=== PATIENT | male | born 1940 | race Caucasian/White ===

== ENCOUNTER 2019-07-23 10:56 | Day surgery (SDC) | payer MEDICARE ==
[2019-07-22 13:19] VITALS: BMI 27.8
[~2019-07-23 10:56] MED LIST: ALBUTEROL NEB (CONC) 2.5 MG/0.5 ML INHALATION ONE; ATROPINE SULFATE 0.4 MG/ML 1 ML VIAL IM ONE; LACTATED RINGERS 1,000 ML IV SCH; LIDOCAINE 2% (PF) 20 MG/ML 5 ML VIAL INHALATION ONE; LIDOCAINE VISCOUS 300 MG/15 ML CUP MUCOUS MEM ONE; SODIUM CHLORIDE 0.9% 1,000 ML IV SCH
[2019-07-23 11:27] VITALS: TEMP 97.8
[2019-07-23] MEDS ORDERED: LIDOCAINE 1% 20 ML VIAL (10MG/ML) FOR IV START INTRADERMA ONE (11:47)
[2019-07-23] MEDS ORDERED: LIDOCAINE 1% INJ 10MG/ML (20 ML MDV) ONE (12:06)
[2019-07-23] MEDS ORDERED: PROPOFOL 10 MG/ML 20 ML VIAL IV ONE (12:06)
[2019-07-23 12:23] LABS: INR 3.3 (<1.2); Prothrombin Time 31.3 sec (9.0-12.0)
[2019-07-23] MEDS ORDERED: LIDOCAINE 2% INJ 20 MG/ML INTRATRACH ONE (12:25)
[2019-07-23 12:56] VITALS: BP 128/87; PULSE 105; RESP 28
--- NOTE | 2019-07-23 13:21 | PCN ---
PROCEDURE NOTE PROCEDURE: Tracheostomy tube change, airway examination, therapeutic lavage, BAL right middle lobe. PREOPERATIVE DIAGNOSIS: COPD, retained secretions, old tracheostomy tube. POSTOPERATIVE DIAGNOSIS: COPD, retained secretions and old tracheostomy tube. UNISHEAR OPERATOR provided unconscious sedation general anesthesia. There was informed consent and universal timeout the patient's procedure took place in room #2. There are two steps to the procedure. The first thing was changing the tracheostomy tube. A similar tube was used. We used a #6 Shiley cuffless tube. The old tube was removed. The new tube was replaced in to this the tracheostomy site. The trocar was removed and the inner cannula was inserted without difficulty. The patient tolerated the procedure very well. The tracheostomy tube was then secured. After this, lidocaine was inserted through the tracheostomy tube. This was used to anesthetize the airways. The bronchoscope was inserted through the tracheostomy tube. The trachea appeared relatively normal. The tracheostomy tube was sitting in the middle of the trachea in proper position. The tracheal ale was sharp. The right and left mainstem were topicalized. Right upper lobe and its 3 segments, right middle lobe and its 2 segments, the right lower lobe and its 5 segments, as well as the left upper lobe proper and its 2 segments, the lingula and its 2 segments and the left lower lobe and its 4 segments all had similar findings of very mild bronchitis. Actually, the airways looked relatively pristine. There was small amount of foamy thin secretions. There was no dominant mass or tumor. The airways themselves looked relatively normal without excessive erythema or hyperemia. There was no bleeding. The bronchoscope was then wedged into the right middle lobe. We did a BAL. The fluid will be sent for analysis. Additional secretions were suctioned and the bronchoscope was withdrawn. The patient tolerated the procedure well. There was no immediate complication. The patient will be recovered. MMODL / IJN: [id number] /
[2019-07-23 15:48] LABS: Appearance,BF Hazy; Color,BF Colorless; Nucleated Cells, Body Fluid 73 /uL; RBC, Body Fluid 348 /uL
[2019-07-23 15:57] LABS: Mononuclear WBC,Body Fluid 23 %; Polynuclear WBC,Body Fluid 73 %; Total Cells Counted,Body Fluid 100
== END 2019-07-23 13:58 | disposition home or self-care (01) ==
LOC: ORWHC2ENDO 10:56
PROVIDERS: ATTEND Internal Medicine Critical Care Medicine
DX: Z43.0 Encounter for attention to tracheostomy (principal); J44.9 Chronic obstructive pulmonary disease, unspecified; I10 Essential (primary) hypertension; E78.5 Hyperlipidemia, unspecified; E11.9 Type 2 diabetes mellitus without complications; J43.8 Other emphysema; I50.9 Heart failure, unspecified; I48.91 Unspecified atrial fibrillation; M19.90 Unspecified osteoarthritis, unspecified site; E66.9 Obesity, unspecified; Z68.33 Body mass index [BMI] 33.0-33.9, adult; H91.90 Unspecified hearing loss, unspecified ear; Z85.46 Personal history of malignant neoplasm of prostate; Z85.07 Personal history of malignant neoplasm of pancreas; Z79.01 Long term (current) use of anticoagulants; Z79.1 Long term (current) use of non-steroidal anti-inflammatories (NSAID); Z79.899 Other long term (current) drug therapy; Z88.7 Allergy status to serum and vaccine
CPT/HCPCS: 31624; 94640; 87798 ×3; 87496; 87498; 87529; 88108; 88305; 89050; 85610; 87252; 87502; 87634; 87070; 87205; 87116; 87102; 87206; J2001 ×3; J2704; 31502

== ENCOUNTER 2019-12-17 15:58 | Inpatient (IN) | payer MEDICARE ==
[2019-12-17] MEDS ORDERED: MORPHINE SULFATE 4 MG/ML SYRINGE IVP STA (16:29)
[2019-12-17] MEDS ORDERED: IPRATROPIUM-ALBUTEROL 3 ML NEB INHALATION STA (16:29)
[2019-12-17] MEDS ORDERED: SODIUM CHLORIDE 0.9% 1,000 ML IV STA (16:29)
[2019-12-17 16:37] LABS: Anisocytosis Slight; Basophils % (A) 0 %; Eosinophils # (A) 0.1 k/uL (0-0.7); Eosinophils % (A) 1 %; HCT 32.5 % (39.0-53.0); HGB 10.1 gm/dL (13.0-17.5); Hypochromasia Slight; Lymphocytes # (A) 0.6 k/uL (1.0-4.8); Lymphocytes % (A) 5 %; MCV 90.1 fL (80.0-100.0); Mean Platelet Volume 7.7; Monocytes # (A) 0.8 k/uL (0-1.0); Monocytes % (A) 8 %; Neutrophils # (A) 9.3 k/uL (1.3-7.7); Neutrophils % (A) 85 %; Platelet Count 210 k/uL (150-450); RBC 3.61 m/uL (4.30-5.90); RDW 16.4 % (11.5-15.5); WBC 10.9 k/uL (3.8-10.6)
[2019-12-17 16:45] LABS: Albumin 3.5 g/dL (3.5-5.0); Calcium 8.6 mg/dL (8.4-10.2); Potassium 4.6 mmol/L (3.5-5.1); Total Bilirubin 1.6 mg/dL (0.2-1.3)
[2019-12-17 16:53] LABS: Partial Thromboplastin Time 36.3 sec (22.0-30.0); Prothrombin Time 70.8 sec (9.0-12.0)
--- NOTE | 2019-12-17 16:54 | ED ---
Weakness HPI - General Chief complaint: Fall Stated complaint: Fall Time Seen by Provider: 12/17/19 16:22 Source: EMS, RN notes reviewed, old records reviewed Mode of arrival: EMS Limitations: no limitations, altered mental status - History of Present Illness Initial comments: This is a 79-year-old male DF for evaluation poor historian history obtained from EMS and staff here. Patient has had multiple recent falls also today with low oxygen level. Patient is improving with oxygen supplemental here in the ER just complains of severe pain he is a poor historian and his ability to both communicate secondary tracheostomy as well as has terrible hearing MD Complaint: generalized weakness Location: generalized Severity: severe Severity scale (1-10): 8 Quality: aching Consistency: constant Improves with: none, evening Context: recent illness, history of similar Associated Symptoms: easy bruising, loss of appetite, nausea/vomiting, shortness of breath - Related Data Home Medications Medication Instructions Recorded Confirmed Meloxicam [Mobic] 7.5 mg PO BID 07/22/19 12/17/19 Warfarin [Coumadin] 5 mg PO DAILY 07/22/19 12/17/19 Carbidopa-Levodopa 25-100 mg 1 tab PO BID 12/17/19 12/17/19 [Sinemet 25-100] DULoxetine HCL [Cymbalta] 60 mg PO DAILY 12/17/19 12/17/19 Ipratropium-Albuterol Nebulize 3 ml INHALATION RT-QID 12/17/19 12/17/19 [Duoneb 0.5 mg-3 mg/3 ml Soln] Metoprolol Tartrate [Lopressor] 50 mg PO BID 12/17/19 12/17/19 Simvastatin [Zocor] 40 mg PO HS 12/17/19 12/17/19 metFORMIN HCL [Glucophage] 500 mg PO DAILY 12/17/19 12/17/19 Allergies Allergy/AdvReac Type Severity Reaction Status Date / Time tetanus immune globulin Allergy Unknown Verified 07/23/19 11:35 Review of Systems ROS Statement: Those systems with pertinent positive or pertinent negative responses have been documented in the HPI. ROS Other: All systems not noted in ROS Statement are negative. 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 SHORTNESS OF BREATH USES UPDRAFT DAILY- UNKNOWN CAUSE , PANCREATIC CANCER -HAD TREATMENT" , BACK PAIN , CATARACTS History of Any Multi-Drug Resistant Organisms: None Reported Past Surgical History: No Surgical Hx Reported Additional Past Surgical History / Comment(s): TRACHEA, " SOME KIND OF HEART SURGERY " UNKNOWN Past Anesthesia/Blood Transfusion Reactions: No Reported Reaction Past Psychological History: No Psychological Hx Reported, Depression Smoking Status: Never smoker - Past Family History Mother Family Medical History: No Reported History General Exam Limitations: no limitations General appearance: alert, in no apparent distress Head exam: Present: atraumatic, normocephalic, normal inspection Eye exam: Present: normal appearance, PERRL, EOMI. Absent: scleral icterus, conjunctival injection, periorbital swelling ENT exam: Present: normal exam, mucous membranes moist Neck exam: Present: normal inspection. Absent: tenderness, meningismus, lymphadenopathy Respiratory exam: Present: respiratory distress, wheezes, accessory muscle use, decreased breath sounds, prolonged expiratory. Absent: rales, rhonchi, stridor Cardiovascular Exam: Present: tachycardia, irregular rhythm, normal heart sounds. Absent: systolic murmur, diastolic murmur, rubs, gallop, clicks GI/Abdominal exam: Present: soft, normal bowel sounds. Absent: distended, tenderness, guarding, rebound, rigid Extremities exam: Present: normal inspection, full ROM, normal capillary refill. Absent: tenderness, pedal edema, joint swelling, calf tenderness Back exam: Present: normal inspection Neurological exam: Present: alert, oriented X3, CN II-XII intact Psychiatric exam: Present: normal affect, normal mood Skin exam: Present: warm, dry, intact, normal color. Absent: rash Course Vital Signs 12/17/19 12/17/19 12/17/19 16:03 17:27 17:55 Temperature 98.0 F Pulse Rate 101 H 108 H 108 H Respiratory 16 Rate Blood Pressure 126/88 O2 Sat by Pulse 91 L Oximetry 12/17/19 12/17/19 18:19 19:45 Temperature Pulse Rate 112 H 97 Respiratory 16 20 Rate Blood Pressure 134/92 106/82 O2 Sat by Pulse 93 L 98 Oximetry - Reevaluation(s) Reevaluation #1: 12/17/19 19:59 Medical records reviewed Reevaluation #2: 12/17/19 20:00 Patient on reassessment shows no significant improvement of his oxygenation has improved with supplemental oxygen breathing treatments Reevaluation #3: 12/17/19 20:00 Due to patient's coagulopathy will hold Coumadin Reevaluation #4: 12/17/19 20:00 Patient's heart rate is improved, A. fib - Consultations Consultation #1: Spoke with found doctor's on-call who are agreeable for admission EKG Findings - EKG Comments: EKG Findings:: EKG shows A. fib with RVR of 108 QRS 108 QTC 402 Medical Decision Making - Medical Decision Making 79 male DF for evaluation of weakness multiple falls A. fib with RVR Juan patient is coagulopathic, will hold Spoke with CT brain C-spine negative for genetic injury patient is on trach will continue breathing treatments bilateral pneumonia admission for monitoring of clinical a status is patient's also an A. fib with RVR - Lab Data Result diagrams: 12/17/19 16:09 12/17/19 16:09 Lab Results 12/17/19 12/17/19 12/17/19 Range/Units 16:09 16:09 16:09 WBC 10.9 H (3.8-10.6) k/uL RBC 3.61 L (4.30-5.90) m/uL Hgb 10.1 L (13.0-17.5) gm/dL Hct 32.5 L (39.0-53.0) % MCV 90.1 (80.0-100.0) fL MCH 28.0 (25.0-35.0) pg MCHC 31.0 (31.0-37.0) g/dL RDW 16.4 H (11.5-15.5) % Plt Count 210 (150-450) k/uL Neutrophils % 85 % Lymphocytes % 5 % Monocytes % 8 % Eosinophils % 1 % Basophils % 0 % Neutrophils # 9.3 H (1.3-7.7) k/uL Lymphocytes # 0.6 L (1.0-4.8) k/uL Monocytes # 0.8 (0-1.0) k/uL Eosinophils # 0.1 (0-0.7) k/uL Basophils # 0.0 (0-0.2) k/uL Hypochromasia Slight Anisocytosis Slight PT 70.8 H (9.0-12.0) sec INR 6.9 H* (<1.2) APTT 36.3 H (22.0-30.0) sec Sodium 136 L (137-145) mmol/L Potassium 4.6 (3.5-5.1) mmol/L Chloride 102 (98-107) mmol/L Carbon Dioxide 22 (22-30) mmol/L Anion Gap 12 mmol/L BUN 36 H (9-20) mg/dL Creatinine 1.17 (0.66-1.25) mg/dL Est GFR (CKD-EPI)AfAm 68 (>60 ml/min/1.73 sqM) Est GFR (CKD-EPI)NonAf 59 (>60 ml/min/1.73 sqM) Glucose 146 H (74-99) mg/dL Lactic Ac Sepsis Rflx Plasma Lactic Acid Eddi (0.7-2.0) mmol/L Calcium 8.6 (8.4-10.2) mg/dL Phosphorus (2.5-4.5) mg/dL Magnesium (1.6-2.3) mg/dL Total Bilirubin 1.6 H (0.2-1.3) mg/dL AST 47 (17-59) U/L ALT 23 (4-49) U/L Alkaline Phosphatase 65 (38-126) U/L Creatine Kinase (55-170) U/L Troponin I (0.000-0.034) ng/mL NT-Pro-B Natriuret Pep pg/mL Total Protein 7.0 (6.3-8.2) g/dL Albumin 3.5 (3.5-5.0) g/dL 12/17/19 12/17/19 12/17/19 Range/Units 16:09 16:09 16:09 WBC (3.8-10.6) k/uL RBC (4.30-5.90) m/uL Hgb (13.0-17.5) gm/dL Hct (39.0-53.0) % MCV (80.0-100.0) fL MCH (25.0-35.0) pg MCHC (31.0-37.0) g/dL RDW (11.5-15.5) % Plt Count (150-450) k/uL Neutrophils % % Lymphocytes % % Monocytes % % Eosinophils % % Basophils % % Neutrophils # (1.3-7.7) k/uL Lymphocytes # (1.0-4.8) k/uL Monocytes # (0-1.0) k/uL Eosinophils # (0-0.7) k/uL Basophils # (0-0.2) k/uL Hypochromasia Anisocytosis PT (9.0-12.0) sec INR (<1.2) APTT (22.0-30.0) sec Sodium (137-145) mmol/L Potassium (3.5-5.1) mmol/L Chloride (98-107) mmol/L Carbon Dioxide (22-30) mmol/L Anion Gap mmol/L BUN (9-20) mg/dL Creatinine (0.66-1.25) mg/dL Est GFR (CKD-EPI)AfAm (>60 ml/min/1.73 sqM) Est GFR (CKD-EPI)NonAf (>60 ml/min/1.73 sqM) Glucose (74-99) mg/dL Lactic Ac Sepsis Rflx Plasma Lactic Acid Eddi 2.1 H* (0.7-2.0) mmol/L Calcium (8.4-10.2) mg/dL Phosphorus 3.5 (2.5-4.5) mg/dL Magnesium 1.7 (1.6-2.3) mg/dL Total Bilirubin (0.2-1.3) mg/dL AST (17-59) U/L ALT (4-49) U/L Alkaline Phosphatase (38-126) U/L Creatine Kinase 349 H (55-170) U/L Troponin I 0.020 (0.000-0.034) ng/mL NT-Pro-B Natriuret Pep pg/mL Total Protein (6.3-8.2) g/dL Albumin (3.5-5.0) g/dL 12/17/19 12/17/19 Range/Units 16:09 16:49 WBC (3.8-10.6) k/uL RBC (4.30-5.90) m/uL Hgb (13.0-17.5) gm/dL Hct (39.0-53.0) % MCV (80.0-100.0) fL MCH (25.0-35.0) pg MCHC (31.0-37.0) g/dL RDW (11.5-15.5) % Plt Count (150-450) k/uL Neutrophils % % Lymphocytes % % Monocytes % % Eosinophils % % Basophils % % Neutrophils # (1.3-7.7) k/uL Lymphocytes # (1.0-4.8) k/uL Monocytes # (0-1.0) k/uL Eosinophils # (0-0.7) k/uL Basophils # (0-0.2) k/uL Hypochromasia Anisocytosis PT (9.0-12.0) sec INR (<1.2) APTT (22.0-30.0) sec Sodium (137-145) mmol/L Potassium (3.5-5.1) mmol/L Chloride (98-107) mmol/L Carbon Dioxide (22-30) mmol/L Anion Gap mmol/L BUN (9-20) mg/dL Creatinine (0.66-1.25) mg/dL Est GFR (CKD-EPI)AfAm (>60 ml/min/1.73 sqM) Est GFR (CKD-EPI)NonAf (>60 ml/min/1.73 sqM) Glucose (74-99) mg/dL Lactic Ac Sepsis Rflx Y Plasma Lactic Acid Eddi (0.7-2.0) mmol/L Calcium (8.4-10.2) mg/dL Phosphorus (2.5-4.5) mg/dL Magnesium (1.6-2.3) mg/dL Total Bilirubin (0.2-1.3) mg/dL AST (17-59) U/L ALT (4-49) U/L Alkaline Phosphatase (38-126) U/L Creatine Kinase (55-170) U/L Troponin I (0.000-0.034) ng/mL NT-Pro-B Natriuret Pep 4540 pg/mL Total Protein (6.3-8.2) g/dL Albumin (3.5-5.0) g/dL - Radiology Data Radiology results: report reviewed (CXR BL pneumonia), image reviewed Critical Care Time Critical Care Time: Yes Total Critical Care Time: 31 Disposition Clinical Impression: Fall, Community acquired pneumonia, Coagulopathy, Weakness Disposition: ADMITTED IP TO THIS HOSP Condition: Fair Is patient prescribed a controlled substance at d/c from ED?: No Referrals: None,Stated [Primary Care Provider] - 1-2 days
[2019-12-17 16:56] LABS: INR 6.9 (<1.2)
--- NOTE | 2019-12-17 17:21 | CT ---
EXAMINATION TYPE: CT brain garrick laura DATE OF EXAM: 12/17/2019 COMPARISON: None HISTORY: Fall today. Patient poor historian and difficulty following instructions. Headache. Neck pain. CT DLP: 1630.9 mGycm Automated exposure control for dose reduction was used. Exam performed without contrast. There is diffuse cerebral cortical atrophy. There is no mass effect nor midline shift. There is no si gn of intracranial hemorrhage. There is hypodensity in the periventricular white matter. The calvariu m is intact. Cervical vertebra have fairly normal alignment. Posterior elements are intact. There is no compressio n fracture. There is degenerative mild disc space narrowing at C3-4. There is multilevel mild facet a rthropathy. The skull base is intact. There is mild thickening and calcification in the transverse li gament. IMPRESSION: Cerebral atrophy and chronic small vessel ischemia. No acute intracranial abnormality. Spondylotic changes in the cervical spine. No fracture seen.
--- NOTE | 2019-12-17 17:29 | XR ---
EXAMINATION TYPE: XR chest 2V DATE OF EXAM: 12/17/2019 COMPARISON: 02/08/2012 HISTORY: Weakness TECHNIQUE: FINDINGS: There is some mild infiltrates and atelectasis in both lower lobes. There is more infiltrat e right lower lobe. There is no heart failure. There is mild blunting of the costophrenic angles. The re is a left axillary pacemaker. Thoracic aorta is atheromatous. There is tracheostomy tube. IMPRESSION: Bilateral pneumonia and atelectasis much worse on the right side that is a change compare d to old exam. No obvious heart failure. Small pleural effusions.
[2019-12-17 17:47] LABS: Magnesium 1.7 mg/dL (1.6-2.3); Phosphorus 3.5 mg/dL (2.5-4.5)
[2019-12-17] MEDS ORDERED: LORazepam 2 MG/ML INJ IV STA (18:20)
[2019-12-17] MEDS ORDERED: ASPIRIN 81 MG PO STA (19:54)
[2019-12-17] MEDS ORDERED: MORPHINE SULFATE 4 MG/ML SYRINGE IV PRN (19:54)
[2019-12-17] MEDS ORDERED: NITROGLYCERIN SL TABS 0.4 MG TAB SUBLINGUAL PRN (19:54)
[2019-12-17] MEDS ORDERED: PNEUMONIA PROTOCOL UTILIZED 1 EACH MISC PO PRN (19:54)
[2019-12-17] MEDS ORDERED: ALBUTEROL NEBULIZED 2.5 MG/3 ML INHALATION SCH (20:00)
[2019-12-17 20:44] LABS: Amorphous Sediment,Urine Rare /hpf; Appearance,Urine Cloudy (Clear); Bacteria,Urine Occasional /hpf; Bilirubin,Urine Negative (Negative); Blood,Urine Negative (Negative); Color,Urine Yellow; Glucose,Urine (UA) Negative (Negative); Hyaline Casts,Urine 18 /lpf (0-2); Ketones,Urine 1+ (Negative); Leukocyte Esterase,Urine Negative (Negative); Mucus,Urine Occasional /hpf; Nitrite,Urine Negative (Negative); Protein,Urine 1+ (Negative); RBC,Urine 2 /hpf (0-5); Specific Gravity,Urine 1.024 (1.001-1.035); Squamous Epithelial Cell,Urine <1 /hpf (0-4); WBC,Urine 4 /hpf (0-5)
[2019-12-17 20:49] LABS: ABG Base Excess -1.7 mmol/L; ABG HCO3 24 mmol/L (21-25); ABG Oxygen Saturation 88.3 % (94-97); ABG PCO2 41 mmHg (35-45); ABG PH 7.37 (7.35-7.45); ABG TCO2 25 mmol/L (19-24); Allen Test Performed? Yes
[2019-12-17] MEDS: SODIUM CHLORIDE 0.9% 1,000 ML IV SCH (21:50)
[2019-12-17] MEDS ORDERED: VANCOMYCIN IV PER PHARMACY 1 EACH MISC MISCELLANE PRN (21:52)
[2019-12-17] MEDS ORDERED: CEFEPIME 2 GM in SODIUM CHLORIDE 0.9% 100 ML IVPB SCH (22:00)
[2019-12-17] MEDS ORDERED: VANCOMYCIN 1,750 MG in SODIUM CHLORIDE 0.9% 500 ML 500 ML IVPB ONE (23:00)
[2019-12-17 23:30] LABS: Glucose,Whole Blood 132 mg/dL (75-99)
[2019-12-17 23:39] LABS: ABG PO2 58 mmHg (83-108)
[2019-12-17] MEDS ORDERED: NALOXONE 0.4 MG/ML 1 ML VIAL IV PRN (23:53)
[2019-12-18] MEDS ORDERED: LORazepam 2 MG/ML INJ IV STA (00:05)
--- NOTE | 2019-12-18 01:00 | XR ---
EXAMINATION TYPE: XR pelvis AP view DATE OF EXAM: 12/18/2019 COMPARISON: NONE HISTORY: Left hip pain TECHNIQUE: Single view FINDINGS: There is severe narrowing of the left hip joint space with some flattening of the articular surface of the left femoral head. There is osteosclerosis. The pelvic ring is intact. I see no acute fracture nor dislocation. Proximal femurs are intact. IMPRESSION: Severe osteoarthritis left hip joint. No acute bony abnormality.
--- NOTE | 2019-12-18 01:14 | P.HPIM ---
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 History obtained from son via phone (Lars - [phone]). The son reports that the patient who lives at home with them, had been increasingly lethargic and "weak" over the past few days. He notes that the patient is normally able to dress himself and walk to the restroom but that over the past few days, he had been unable to even get off the couch. He reports that the patient otherwise did not have any complaints. He notes that earlier on the day of presentation, the patient had stood up from his couch, and urinated on the floor. The patient then slipped on the urine and fell from standing, possibly hitting his head. The patient did not suffer loss of consciousness. The son also denied noticing shaking movements of the body. The patient was subsequently brought into the emergency room where he underwent an extensive evaluation. Chest x-ray had revealed bilateral pneumonia, worse on the right side. Head/C-spine computed tomography scan revealed chronic ischemic changes but was otherwise unremarkable. EKG revealed A. fib with RVR at 108 bpm. Laboratory evaluation had revealed a troponin of 0.02, INR 6.9, lactic acid 2.1, CK 349, BNP 4540, hemoglobin 10.1, WBC count 10.9, sodium 136, potassium 4.6, BUN 36, creatinine 1.17. The patient was noted to be hypoxic and was started on supplemental oxygen. The patient was seen and evaluated in the emergency room. He was lethargic and nonverbal, opening eyes to verbal and tactile stimuli but not answering any questions. He is being admitted to the medicine service for further management. Review of Systems ROS unobtainable: due to mental status Past Medical History Past Medical History: Cancer, Hearing Disorder / Deafness, Osteoarthritis (OA) History of Any Multi-Drug Resistant Organisms: None Reported Past Surgical History: No Surgical Hx Reported Additional Past Surgical History / Comment(s): TRACHEA, " SOME KIND OF HEART SURGERY " UNKNOWN Past Anesthesia/Blood Transfusion Reactions: No Reported Reaction Past Psychological History: No Psychological Hx Reported, Depression Smoking Status: Never smoker - Past Family History Mother Family Medical History: No Reported History Medications and Allergies Home Medications Medication Instructions Recorded Confirmed Type Meloxicam [Mobic] 7.5 mg PO BID 07/22/19 12/17/19 History Warfarin [Coumadin] 5 mg PO DAILY 07/22/19 12/17/19 History Carbidopa-Levodopa 25-100 mg 1 tab PO BID 12/17/19 12/17/19 History [Sinemet 25-100] DULoxetine HCL [Cymbalta] 60 mg PO DAILY 12/17/19 12/17/19 History Ipratropium-Albuterol Nebulize 3 ml INHALATION RT-QID 12/17/19 12/17/19 History [Duoneb 0.5 mg-3 mg/3 ml Soln] Metoprolol Tartrate [Lopressor] 50 mg PO BID 12/17/19 12/17/19 History Simvastatin [Zocor] 40 mg PO HS 12/17/19 12/17/19 History metFORMIN HCL [Glucophage] 500 mg PO DAILY 12/17/19 12/17/19 History Allergies Allergy/AdvReac Type Severity Reaction Status Date / Time tetanus immune globulin Allergy Unknown Verified 07/23/19 11:35 Physical Exam Vitals: Vital Signs Temp Pulse Resp BP Pulse Ox 12/17/19 21:00 106 H 24 123/98 98 12/17/19 19:45 97 20 106/82 98 12/17/19 18:19 112 H 16 134/92 93 L 12/17/19 17:55 108 H 12/17/19 17:27 108 H 12/17/19 16:03 98.0 F 101 H 16 126/88 91 L Intake and Output 12/17/19 12/17/19 12/17/19 06:59 14:59 22:59 Other: Weight 81.647 kg General: Elderly M, non toxic, no distress, appears at stated age, normal weight Derm: multiple bruises throughout, warm, dry Head: atraumatic, normocephalic, symmetric Eyes: Anisocoria with L miotic pupil and R pupil 4-5 mm, anicteric sclera ENT: Nose and ears atraumatic Neck: No thyromegaly, no cervical lymphadenopathy, tracheotomy with collar in place, supple Mouth: no lip lesion, mucus membranes moist Cardiovascular: Tachycardic, irregularly irregular, no murmur, 2+ susanne LE pitting edema noted Lungs: Bilateral rales with ronchi, no wheezing appreciated, no accessory muscle use Abdominal: soft, nontender to palpation, no guarding, no appreciable organomegaly Neuro: Not following commands, opens eyes to stimuli, anisocoria noted, moving all extremities grossly Results CBC & Chem 7: 12/17/19 16:09 12/17/19 16:09 Labs: Abnormal Lab Results - Last 24 Hours (Table) 12/17/19 12/17/19 12/17/19 Range/Units 16:09 16: 16:09 WBC 10.9 H (3.8-10.6) k/uL RBC 3.61 L (4.30-5.90) m/uL Hgb 10.1 L (13.0-17.5) gm/dL Hct 32.5 L (39.0-53.0) % RDW 16.4 H (11.5-15.5) % Neutrophils # 9.3 H (1.3-7.7) k/uL Lymphocytes # 0.6 L (1.0-4.8) k/uL PT 70.8 H (9.0-12.0) sec INR 6.9 H* (<1.2) APTT 36.3 H (22.0-30.0) sec Sodium 136 L (137-145) mmol/L BUN 36 H (9-20) mg/dL Glucose 146 H (74-99) mg/dL Plasma Lactic Acid Eddi (0.7-2.0) mmol/L Total Bilirubin 1.6 H (0.2-1.3) mg/dL Creatine Kinase (55-170) U/L Urine Protein (Negative) Urine Ketones (Negative) Amorphous Sediment (None) /hpf Urine Bacteria (None) /hpf Hyaline Casts (0-2) /lpf Urine Mucus (None) /hpf 12/17/19 12/17/19 12/17/19 Range/Units 16:09 16:09 20:26 WBC (3.8-10.6) k/uL RBC (4.30-5.90) m/uL Hgb (13.0-17.5) gm/dL Hct (39.0-53.0) % RDW (11.5-15.5) % Neutrophils # (1.3-7.7) k/uL Lymphocytes # (1.0-4.8) k/uL PT (9.0-12.0) sec INR (<1.2) APTT (22.0-30.0) sec Sodium (137-145) mmol/L BUN (9-20) mg/dL Glucose (74-99) mg/dL Plasma Lactic Acid Eddi 2.1 H* 2.2 H* (0.7-2.0) mmol/L Total Bilirubin (0.2-1.3) mg/dL Creatine Kinase 349 H (55-170) U/L Urine Protein (Negative) Urine Ketones (Negative) Amorphous Sediment (None) /hpf Urine Bacteria (None) /hpf Hyaline Casts (0-2) /lpf Urine Mucus (None) /hpf 12/17/19 Range/Units 20:30 WBC (3.8-10.6) k/uL RBC (4.30-5.90) m/uL Hgb (13.0-17.5) gm/dL Hct (39.0-53.0) % RDW (11.5-15.5) % Neutrophils # (1.3-7.7) k/uL Lymphocytes # (1.0-4.8) k/uL PT (9.0-12.0) sec INR (<1.2) APTT (22.0-30.0) sec Sodium (137-145) mmol/L BUN (9-20) mg/dL Glucose (74-99) mg/dL Plasma Lactic Acid Eddi (0.7-2.0) mmol/L Total Bilirubin (0.2-1.3) mg/dL Creatine Kinase (55-170) U/L Urine Protein 1+ H (Negative) Urine Ketones 1+ H (Negative) Amorphous Sediment Rare H (None) /hpf Urine Bacteria Occasional H (None) /hpf Hyaline Casts 18 H (0-2) /lpf Urine Mucus Occasional H (None) /hpf Assessment and Plan Plan: Acute hypoxic respiratory failure, secondary to severe sepsis from bilateral pneumonia -Supplemental oxygen -Antibiotics: cefepime and vancomycin. Add Flagyl for possible aspiration -Continue with ICU level of care -Follow up blood cultures -Frequent suctioning -Influenza negative -ABG reviewed Altered mentation, likely toxic metabolic encephalopathy from severe sepsis -Treat underlying condition: Severe sepsis with pneumonia Mechanical fall -CT head unremarkable -Obtain hip x-ray Lactic acidosis -Likely due to severe sepsis -Continue with current management A. fib with RVR, on Coumadin with supratherapeutic INR -C/w Lopressor -Administer 2 mg IV vitamin K Anisocoria -Discussed with the patient's family in detail -The reported that they had never noticed uneven pupils in the past -Due to altered mentation, lack of neurology coverage, and inability to perform MRI due to a pacemaker, transfer the patient to [facility] for neurology evaluation -Discussed with the family who is in agreement Bilateral lower extremity edema with elevated BNP -Possibly undiagnosed CHF -Patient will need echocardiogram Elevated CK -Possibly due to fall versus dehydration -Judicious IV fluid use Prerenal LINSEY, likely due to dehydration with poor oral intake -IVFs -Monitor BMP
[2019-12-18] MEDS ORDERED: PHYTONADIONE 2 MG in SODIUM CHLORIDE 0.9% 50 ML IVPB ONE (01:30)
--- NOTE | 2019-12-18 01:53 | P.DS ---
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 History obtained from son via phone (Lars - [phone]). The son reports that the patient who lives at home with them, had been increasingly lethargic and "weak" over the past few days. He notes that the patient is normally able to dress himself and walk to the restroom but that over the past few days, he had been unable to even get off the couch. He reports that the patient otherwise did not have any complaints. He notes that earlier on the day of presentation, the patient had stood up from his couch, and urinated on the floor. The patient then slipped on the urine and fell from standing, possibly hitting his head. The patient did not suffer loss of consciousness. The son also denied noticing shaking movements of the body. The patient was subsequently brought into the emergency room where he underwent an extensive evaluation. Chest x-ray had revealed bilateral pneumonia, worse on the right side. Head/C-spine computed tomography scan revealed chronic ischemic changes but was otherwise unremarkable. EKG revealed A. fib with RVR at 108 bpm. Laboratory evaluation had revealed a troponin of 0.02, INR 6.9, lactic acid 2.1, CK 349, BNP 4540, hemoglobin 10.1, WBC count 10.9, sodium 136, potassium 4.6, BUN 36, creatinine 1.17. Hip X-ray revealed no acute fractures. The patient was noted to be hypoxic and was started on supplemental oxygen. The patient was seen and evaluated in the emergency room. He was lethargic and nonverbal, opening eyes to verbal and tactile stimuli but not answering any questions. The patient was started on IV antibiotics and given a dose of Vitamin K. The case was discussed with the patient's family with regards to his anisocoria and poor mental status. The patient's son had reported never noticing uneven pupils in the past. Discussed the need for neurology evaluation and inability to perform a brain MRI. The son was in agreement with transfer to [facility] for further evaluation. The case with was discussed with [facility] transfer center and was accepted by Dr. Sheridan/Anabella to a MICU bed. Physical Examination General: Elderly M, non toxic, no distress, appears at stated age, normal weight Derm: multiple bruises throughout, warm, dry Head: atraumatic, normocephalic, symmetric Eyes: Anisocoria with L miotic pupil and R pupil 4-5 mm, anicteric sclera ENT: Nose and ears atraumatic Neck: No thyromegaly, no cervical lymphadenopathy, tracheotomy with collar in place, supple Mouth: no lip lesion, mucus membranes moist Cardiovascular: Tachycardic, irregularly irregular, no murmur, 2+ susanne LE pitting edema noted Lungs: Bilateral rales with ronchi, no wheezing appreciated, no accessory muscle use Abdominal: soft, nontender to palpation, no guarding, no appreciable organomegaly Neuro: Not following commands, opens eyes to stimuli, anisocoria noted, moving all extremities grossly Discharge diagnosis: Acute hypoxic respiratory failure secondary to severe sepsis from bilateral pneumonia; altered mentation, likely metabolic encephalopathy from severe sepsis; mechanical fall; lactic acidosis; A. fib with RVR; super therapeutic INR; anisocoria; bilateral lower extremity edema; elevated CK A total of 60 minutes of time were spent preparing this complex discharge summary. Patient Condition at Discharge: Serious Plan - Discharge Summary New Discharge Prescriptions: No Action Warfarin [Coumadin] 5 mg PO DAILY Meloxicam [Mobic] 7.5 mg PO BID metFORMIN HCL [Glucophage] 500 mg PO DAILY Simvastatin [Zocor] 40 mg PO HS Carbidopa-Levodopa 25-100 mg [Sinemet 25-100] 1 tab PO BID Metoprolol Tartrate [Lopressor] 50 mg PO BID DULoxetine HCL [Cymbalta] 60 mg PO DAILY Ipratropium-Albuterol Nebulize [Duoneb 0.5 mg-3 mg/3 ml Soln] 3 ml INHALATION RT-QID Discharge Medication List Meloxicam [Mobic] 7.5 mg PO BID 07/22/19 [History] Warfarin [Coumadin] 5 mg PO DAILY 07/22/19 [History] Carbidopa-Levodopa 25-100 mg [Sinemet 25-100] 1 tab PO BID 12/17/19 [History] DULoxetine HCL [Cymbalta] 60 mg PO DAILY 12/17/19 [History] Ipratropium-Albuterol Nebulize [Duoneb 0.5 mg-3 mg/3 ml Soln] 3 ml INHALATION RT-QID 12/17/19 [History] Metoprolol Tartrate [Lopressor] 50 mg PO BID 12/17/19 [History] Simvastatin [Zocor] 40 mg PO HS 12/17/19 [History] metFORMIN HCL [Glucophage] 500 mg PO DAILY 12/17/19 [History] Follow up Appointment(s)/Referral(s): None,Stated [Primary Care Provider] - 1-2 days
[2019-12-18] MEDS ORDERED: metroNIDAZOLE-NS PMX 500 MG in SALINE 1 100ML.BAG IVPB SCH (02:00)
[2019-12-18] MEDS: SODIUM CHLORIDE 0.9% 1,000 ML IV ONE ×2 (02:43→03:25)
[2019-12-18] MEDS ORDERED: DEXTROSE 5% IN WATER 100 ML with AMIODARONE 150 MG IV ONE (03:00)
[2019-12-18] MEDS ORDERED: SODIUM CHLORIDE 0.9% 1,000 ML IV ONE (03:23)
[2019-12-18] MEDS ORDERED: AMIODARONE 360 MG in DEXTROSE 5% IN WATER 200 ML IV ONE ×2 (03:30)
[2019-12-18] MEDS ORDERED: NOREPINEPHRINE 4 MG in SODIUM CHLORIDE 0.9% 250 ML IV SCH (03:45)
[2019-12-18] MEDS: PROPOFOL 1,000 MG in EMPTY BAG 1 BAG IV SCH ×2 (03:54→05:48)
[2019-12-18 05:06] VITALS: BP 93/53; PULSE 120; RESP 25; TEMP 98
[2019-12-18] MEDS: SODIUM CHLORIDE 0.9% 1,000 ML IV SCH (05:48)
--- NOTE | 2019-12-18 07:22 | ED ---
Medical Decision Making - Medical Decision Making Called to ICU for patient who appears to be in septic shock secondary to pneumonia. Upon my arrival patient was profoundly hypotensive, peripheral lines had been established and patient was ordered to have some peripheral levophed. Patient was minimally responsive and nonverbal therefore decision was made to place right femoral central line emergently. Central line was placed without difficulty, there is good dark blood return from all ports. Central line okay to use. - Lab Data Result diagrams: 12/17/19 16:09 12/17/19 16:09 Lab Results 12/17/19 12/17/19 12/17/19 Range/Units 16:09 16:09 16:09 WBC 10.9 H (3.8-10.6) k/uL RBC 3.61 L (4.30-5.90) m/uL Hgb 10.1 L (13.0-17.5) gm/dL Hct 32.5 L (39.0-53.0) % MCV 90.1 (80.0-100.0) fL MCH 28.0 (25.0-35.0) pg MCHC 31.0 (31.0-37.0) g/dL RDW 16.4 H (11.5-15.5) % Plt Count 210 (150-450) k/uL Neutrophils % 85 % Lymphocytes % 5 % Monocytes % 8 % Eosinophils % 1 % Basophils % 0 % Neutrophils # 9.3 H (1.3-7.7) k/uL Lymphocytes # 0.6 L (1.0-4.8) k/uL Monocytes # 0.8 (0-1.0) k/uL Eosinophils # 0.1 (0-0.7) k/uL Basophils # 0.0 (0-0.2) k/uL Hypochromasia Slight Anisocytosis Slight PT 70.8 H (9.0-12.0) sec INR 6.9 H* (<1.2) APTT 36.3 H (22.0-30.0) sec Sodium 136 L (137-145) mmol/L Potassium 4.6 (3.5-5.1) mmol/L Chloride 102 (98-107) mmol/L Carbon Dioxide 22 (22-30) mmol/L Anion Gap 12 mmol/L BUN 36 H (9-20) mg/dL Creatinine 1.17 (0.66-1.25) mg/dL Est GFR (CKD-EPI)AfAm 68 (>60 ml/min/1.73 sqM) Est GFR (CKD-EPI)NonAf 59 (>60 ml/min/1.73 sqM) Glucose 146 H (74-99) mg/dL Lactic Ac Sepsis Rflx Plasma Lactic Acid Eddi (0.7-2.0) mmol/L Calcium 8.6 (8.4-10.2) mg/dL Phosphorus (2.5-4.5) mg/dL Magnesium (1.6-2.3) mg/dL Total Bilirubin 1.6 H (0.2-1.3) mg/dL AST 47 (17-59) U/L ALT 23 (4-49) U/L Alkaline Phosphatase 65 (38-126) U/L Creatine Kinase (55-170) U/L Troponin I (0.000-0.034) ng/mL NT-Pro-B Natriuret Pep pg/mL Total Protein 7.0 (6.3-8.2) g/dL Albumin 3.5 (3.5-5.0) g/dL 12/17/19 12/17/19 12/17/19 Range/Units 16:09 16:09 16:09 WBC (3.8-10.6) k/uL RBC (4.30-5.90) m/uL Hgb (13.0-17.5) gm/dL Hct (39.0-53.0) % MCV (80.0-100.0) fL MCH (25.0-35.0) pg MCHC (31.0-37.0) g/dL RDW (11.5-15.5) % Plt Count (150-450) k/uL Neutrophils % % Lymphocytes % % Monocytes % % Eosinophils % % Basophils % % Neutrophils # (1.3-7.7) k/uL Lymphocytes # (1.0-4.8) k/uL Monocytes # (0-1.0) k/uL Eosinophils # (0-0.7) k/uL Basophils # (0-0.2) k/uL Hypochromasia Anisocytosis PT (9.0-12.0) sec INR (<1.2) APTT (22.0-30.0) sec Sodium (137-145) mmol/L Potassium (3.5-5.1) mmol/L Chloride (98-107) mmol/L Carbon Dioxide (22-30) mmol/L Anion Gap mmol/L BUN (9-20) mg/dL Creatinine (0.66-1.25) mg/dL Est GFR (CKD-EPI)AfAm (>60 ml/min/1.73 sqM) Est GFR (CKD-EPI)NonAf (>60 ml/min/1.73 sqM) Glucose (74-99) mg/dL Lactic Ac Sepsis Rflx Plasma Lactic Acid Eddi 2.1 H* (0.7-2.0) mmol/L Calcium (8.4-10.2) mg/dL Phosphorus 3.5 (2.5-4.5) mg/dL Magnesium 1.7 (1.6-2.3) mg/dL Total Bilirubin (0.2-1.3) mg/dL AST (17-59) U/L ALT (4-49) U/L Alkaline Phosphatase (38-126) U/L Creatine Kinase 349 H (55-170) U/L Troponin I 0.020 (0.000-0.034) ng/mL NT-Pro-B Natriuret Pep pg/mL Total Protein (6.3-8.2) g/dL Albumin (3.5-5.0) g/dL 12/17/19 12/17/19 Range/Units 16:09 16:49 WBC (3.8-10.6) k/uL RBC (4.30-5.90) m/uL Hgb (13.0-17.5) gm/dL Hct (39.0-53.0) % MCV (80.0-100.0) fL MCH (25.0-35.0) pg MCHC (31.0-37.0) g/dL RDW (11.5-15.5) % Plt Count (150-450) k/uL Neutrophils % % Lymphocytes % % Monocytes % % Eosinophils % % Basophils % % Neutrophils # (1.3-7.7) k/uL Lymphocytes # (1.0-4.8) k/uL Monocytes # (0-1.0) k/uL Eosinophils # (0-0.7) k/uL Basophils # (0-0.2) k/uL Hypochromasia Anisocytosis PT (9.0-12.0) sec INR (<1.2) APTT (22.0-30.0) sec Sodium (137-145) mmol/L Potassium (3.5-5.1) mmol/L Chloride (98-107) mmol/L Carbon Dioxide (22-30) mmol/L Anion Gap mmol/L BUN (9-20) mg/dL Creatinine (0.66-1.25) mg/dL Est GFR (CKD-EPI)AfAm (>60 ml/min/1.73 sqM) Est GFR (CKD-EPI)NonAf (>60 ml/min/1.73 sqM) Glucose (74-99) mg/dL Lactic Ac Sepsis Rflx Y Plasma Lactic Acid Eddi (0.7-2.0) mmol/L Calcium (8.4-10.2) mg/dL Phosphorus (2.5-4.5) mg/dL Magnesium (1.6-2.3) mg/dL Total Bilirubin (0.2-1.3) mg/dL AST (17-59) U/L ALT (4-49) U/L Alkaline Phosphatase (38-126) U/L Creatine Kinase (55-170) U/L Troponin I (0.000-0.034) ng/mL NT-Pro-B Natriuret Pep 4540 pg/mL Total Protein (6.3-8.2) g/dL Albumin (3.5-5.0) g/dL Disposition Clinical Impression: Fall, Community acquired pneumonia, Coagulopathy, Weakness Disposition: ADMITTED IP TO THIS [facility] Condition: Serious Procedures - [place] Protocol (Time Out) Nurse: Tono Staton - Central Line Placement Right Femoral Consent Obtained: emergent situation Patient Placed on Monitor/Pulse Ox: Yes MD Prep: mask, gown, gloves Central Line Prep: Chlorhexidine scrub, sterile drapes applied Local Anesthesia Used: Lidocaine 1% Amount of Anesthesia Used (mls): 3 Ultrasound Used for Placement: Yes Central Line Lumen Inserted: triple Bloods Obtained for Lab: No Central Line Position: good blood return, all ports aspirated, flushed, capped, sutured in place with 2-0 silk Dressing Applied: sterile gauze/tape Patient Tolerated Procedure: well Complications: none
[2019-12-18] MEDS ORDERED: ASPIRIN 325 MG TAB PO SCH (09:00)
[2019-12-18] MEDS ORDERED: AMIODARONE 300 MG in DEXTROSE 5% IN WATER 250 ML IV SCH ×2 (09:30)
--- NOTE | 2019-12-20 14:05 | CDI ---
Documentation Clarification Form Date: 12/20/19 From: Belkys Ochoa CCS Phone: If you have a question about this query, please contact Emperatriz Ramachandran, X Ray Nurse at [phone] between 8am and 5pm. Admit Date: 12/17/19 Discharge Date: 12/18/19 Patient Name: Joaquim Cosme Visit Number: [id number] ATTENTION: The Clinical Documentation Specialists (CDI) and [facility] Coding Staff appreciate your assistance in clarifying documentation. Please respond to the clarification below the line at the bottom and electronically sign. The CDI & [facility] Coding staff will review the response and follow-up if needed. Please note: Queries are made part of the Legal Health Record. If you have any questions, please contact the author of this message via ITS. Dear Dr. Shi Atrial Fibrillation is documented in the ED, H&P, DS. History/Risk Factors: HTN, DM, Sepsis, PNA Clinical Indicators: AFIB EKG/telemetry: Atrial fibrillation with RVR Treatment: Coumadin 5mg PO daily In your professional opinion, can you please clarify the type of Atrial Fibrillation, if known? Chronic/Permanent Paroxysmal Persistent Other, please specify Unable to determine Unable to determine MTDD
== END 2019-12-18 06:07 | disposition short-term general hospital (02) | DRG 871 ==
LOC: EC 15:58 → 3SCARD 19:55 → 2SICU 21:35
PROVIDERS: ADMIT Internal Medicine; ATTEND Internal Medicine
PROC: 06HM33Z Insertion of Infusion Device into Right Femoral Vein, Percutaneous Approach (ICD-10-PCS; principal; 2019-12-18)
PROC: 5A1935Z Respiratory Ventilation, Less than 24 Consecutive Hours (ICD-10-PCS; 2019-12-18)
DX: A41.9 Sepsis, unspecified organism (principal); J96.01 Acute respiratory failure with hypoxia; R40.2213 Coma scale, best verbal response, none, at hospital admission; G93.41 Metabolic encephalopathy; R65.21 Severe sepsis with septic shock; J18.9 Pneumonia, unspecified organism; D68.9 Coagulation defect, unspecified; E87.2 Acidosis; N17.9 Acute kidney failure, unspecified; I11.0 Hypertensive heart disease with heart failure; I50.9 Heart failure, unspecified; H91.90 Unspecified hearing loss, unspecified ear; M19.90 Unspecified osteoarthritis, unspecified site; H26.9 Unspecified cataract; I48.91 Unspecified atrial fibrillation; E78.5 Hyperlipidemia, unspecified; E11.9 Type 2 diabetes mellitus without complications; H57.02 Anisocoria; R40.2362 Coma scale, best motor response, obeys commands, at arrival to emergency department; R40.2142 Coma scale, eyes open, spontaneous, at arrival to emergency department; R40.2252 Coma scale, best verbal response, oriented, at arrival to emergency department; R40.2133 Coma scale, eyes open, to sound, at hospital admission; R29.6 Repeated falls; E86.0 Dehydration; W18.30XA Fall on same level, unspecified, initial encounter; Z79.1 Long term (current) use of non-steroidal anti-inflammatories (NSAID); Z79.01 Long term (current) use of anticoagulants; Z79.899 Other long term (current) drug therapy; Z79.84 Long term (current) use of oral hypoglycemic drugs; Z91.81 History of falling; Z93.0 Tracheostomy status; Z85.07 Personal history of malignant neoplasm of pancreas; Z87.09 Personal history of other diseases of the respiratory system; Z98.890 Other specified postprocedural states; Z95.0 Presence of cardiac pacemaker; Z88.7 Allergy status to serum and vaccine
CPT/HCPCS: 36415; 70450; 71046; 72125; 72170; 80053; 81001; 82550; 82805; 83605; 83735; 83880; 84100; 84484; 85025; 85610; 85730; 87040; 87070; 87077; 87186; 87205; 87502; 93005; 94002; 94640; 96361; 96365; 96367; 96374; 96375; 96376; 99291